=== PATIENT | male | born 1945 | race Caucasian/White ===

== ENCOUNTER 2022-04-17 22:30 | Emergency (ER) | payer MEDICARE, SELFPAY ==
--- NOTE | ~2022-04-17 | XR_ITS ---
EXAMINATION: XR ankle RT min 3V DATE: 04/17/2022 22:46 INDICATION: Right ankle pain. TECHNIQUE: 3 views of right ankle were obtained. COMPARISON: None. FINDINGS: There is an oblique fracture of distal fibula with medial aspect of the fracture line 5 mm proximal to the level of the tibial plafond. The distal fracture fragment demonstrates 2 mm posterola teral displacement. There are bone fragments at the tip of medial malleolus. 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 There are enthesophytes at the posterior and plantar aspects of calcaneal tuberosity. A nkle soft tissue swelling is noted. IMPRESSION: 1. Oblique fracture of distal fibula. 2. Small bone fragments at the tip of medial malleolus, which may be an acute avulsion fracture and/o r enthesophytes. Reviewed, dictated and finalized at location A. IMPRESSION: 1. Oblique fracture of distal fibula. 2. Small bone fragments at the tip of medial malleolus, which may be an acute a vulsion fracture and/or enthesophytes.
[2022-04-17 22:35] VITALS: BP 113/65; PULSE 94; RESP 16; TEMP 36.7; O2SAT 95
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
[2022-04-18] MEDS: ACETAMINOPHEN 500 MG TABLET 1000 MG PO (00:17)
--- NOTE | 2022-04-18 01:02 | PC.NURSE ---
called [facility] to request transport. ETA [id number] ZULMA Harris and Vianey not available [facility].
--- NOTE | 2022-04-18 04:18 | PC.NURSE ---
called [facility] for ETA update. ETA [id number]
--- NOTE | 2022-04-18 05:46 | PC.NURSE ---
called [facility] for ETA update. ETA [id number]
--- NOTE | 2022-04-18 06:56 | PC.NURSE ---
[facility] here.
[2022-04-18 07:05] VITALS: BP 131/64
== END 2022-04-18 07:05 ==
PROVIDERS: Emergency Provider Emergency Medicine
DX: S82.831A Other fracture of upper and lower end of right fibula, initial encounter for closed fracture (principal); E11.9 Type 2 diabetes mellitus without complications; E78.5 Hyperlipidemia, unspecified; Z79.84 Long term (current) use of oral hypoglycemic drugs; Z79.82 Long term (current) use of aspirin; F17.210 Nicotine dependence, cigarettes, uncomplicated; W19.XXXA Unspecified fall, initial encounter
CPT/HCPCS: 29515; 73610; 99284; A9270